=== PATIENT | female | born 1955 | race Caucasian/White ===

== ENCOUNTER 2018-09-20 11:38 | Outpatient (CLI) | payer OTHER ==
[2018-09-20] MEDS ORDERED: IOVERSOL 320 50 ML VIAL ONE (11:56)
[2018-09-20] MEDS ORDERED: IOPAMIDOL-300 100 ML VIAL ONE (11:56)
[2018-09-20 13:02] LABS: CREATININE 0.6 mg/dL (0.4-1.0)
[2018-09-20] MEDS ORDERED: IOPAMIDOL-300 100 ML VIAL IVP ONE (13:27)
[2018-09-20] MEDS ORDERED: IOVERSOL 320 50 ML VIAL PO ONE (13:27)
--- NOTE | 2018-09-20 13:54 | CT Report ---
Reason: STOMACH PAIN Procedure Date: 09/20/2018 Accession Number: [id number] / [id number] Procedure: CT - Abdomen/Pelvis W CPT Code: FULL RESULT: EXAM: CT ABDOMEN AND PELVIS EXAM DATE: 09/20/2018 01:18 PM. CLINICAL HISTORY: STOMACH PAIN. COMPARISONS: CT 09/19/2010. TECHNIQUE: Routine helical CT imaging was performed through the abdomen and pelvis. IV contrast: ISOVUE 300 100mL. Enteric contrast: Yes. Reconstructions: Coronal and sagittal. In accordance with CT protocol optimization, one or more of the following dose reduction techniques were utilized for this exam: automated exposure control, adjustment of mA and/or KV based on patient size, or use of iterative reconstructive technique. FINDINGS: Lung Bases: Unremarkable. Liver: Normal. No masses. Gallbladder/Bile Ducts: Unremarkable. Spleen: Normal. Pancreas: Normal. Adrenal Glands: Normal. Kidneys: Normal. No masses or hydronephrosis. Peritoneal Cavity/Bowel: There is oral contrast seen throughout the small bowel and to the sigmoid colon. No transition zone or bowel obstruction. There are a moderate number of diverticula within the colon. There is a focal area of fat stranding and inflammation in the left lower quadrant around the sigmoid colon image 58-62. No extraintestinal gas. No bowel obstruction or abscess. The appendix is well visualized and normal. Pelvic Organs: Urinary bladder is unremarkable. Uterus and ovaries appear normal in size. Vasculature: No aneurysms or other significant abnormality. Bones: There is mild to moderate disk height loss at L4-L5. No fracture. Other: None. IMPRESSION: Acute diverticulitis in the left lower quadrant of the sigmoid colon. No perforation, abscess or obstruction. RADIA The call report notification system was initiated by Dr. Tacho Brunson at 01:52 PM on 09/20/2018.
== END 2018-09-20 11:39 | disposition home or self-care (01) ==
LOC: DI 11:38
PROVIDERS: ATTEND Physician Assistant Medical
DX: K57.32 Diverticulitis of large intestine without perforation or abscess without bleeding (principal)
CPT/HCPCS: 36415; 74177; 82565; Q9967

== ENCOUNTER 2019-04-04 10:24 | Outpatient (CLI) | payer MEDICARE, OTHER ==
--- NOTE | 2019-04-05 08:24 | Mammography Report ---
Reason: SCREENING MAMMO Procedure Date: 04/04/2019 Accession Number: [id number] / [id number] Procedure: NEL - Screening Mammo Impl w/Ever CPT Code: FULL RESULT: EXAM: Screening Mammo Impl w/Ever DATE: 04/04/2019 11:04 AM CLINICAL HISTORY: Screening encounter. History of nulliparity. History of bilateral saline breast implants. TECHNIQUE: (B) - Bilateral CC and MLO views were obtained. Images were obtained in implant displaced and standard fashion. COMPARISON: 04/09/2016 through 03/12/2010. PARENCHYMAL PATTERN: (A) - The breast(s) demonstrate(s) scattered fibroglandular densities. FINDINGS: Intact-appearing prepectoral saline implants are again demonstrated. There are no suspicious masses, calcifications, or areas of distortion. IMPRESSION: Benign findings. BI-RADS category 2. RECOMMENDATION: (ANNUAL) - Recommend routine annual screening mammography. BI-RADS CATEGORY: (2) - Benign Findings. STANDARD QUALIFYING STATEMENTS: 1. This examination was not reviewed with the aid of Computer-Aided Detection (CAD). 2. A negative or benign imaging report should not preclude biopsy if clinically suspicious findings are present. 3. Dense breasts may obscure an underlying neoplasm. 4. This examination was reviewed with the aid of 3D breast imaging (tomosynthesis).
== END 2019-04-04 10:25 | disposition home or self-care (01) ==
LOC: DI 10:24
DX: Z12.31 Encounter for screening mammogram for malignant neoplasm of breast (principal); Z98.82 Breast implant status
CPT/HCPCS: 77063; 77067

== ENCOUNTER 2020-08-01 06:57 | Day surgery (SDC) | payer MEDICARE, OTHER ==
[2020-08-01] MEDS ORDERED: LACTATED RINGERS 1,000 ML IV ONE ×2 (07:00→09:52)
[2020-08-01] MEDS ORDERED: MIDAZOLAM 2 MG/2 ML VIAL ONE ×3 (09:18→09:37)
[2020-08-01] MEDS ORDERED: fentaNYL 250 MCG/5 ML VIAL ONE (09:18)
[2020-08-01 09:54] VITALS: BP 114/58
== END 2020-08-01 06:58 | disposition home or self-care (01) ==
LOC: SDS 06:57
PROVIDERS: ATTEND Surgery
PROC: 0DBL8ZZ Excision of Transverse Colon, Via Natural or Artificial Opening Endoscopic (ICD-10-PCS; principal; 2020-08-01 08:15)
DX: Z12.11 Encounter for screening for malignant neoplasm of colon (principal); D12.3 Benign neoplasm of transverse colon; K57.30 Diverticulosis of large intestine without perforation or abscess without bleeding; Z80.0 Family history of malignant neoplasm of digestive organs; E78.5 Hyperlipidemia, unspecified
CPT/HCPCS: 45380; J3010; J7120

== ENCOUNTER 2020-09-13 09:38 | Outpatient (CLI) | payer MEDICARE, OTHER ==
--- NOTE | 2020-09-13 11:07 | DEXA Report ---
PROCEDURE: Dexa Spine and/or Hip INDICATIONS: POST MENAPAUSAL TECHNIQUE: Dual energy x-ray absorptiometry (DXA) was performed on a OrthoScan System. Regions measur ed are the AP Spine, femoral neck, and if needed forearm. COMPARISON: None. FINDINGS: Lumbar Spine: Bone Mineral Density 0.935 g/cm/cm,T score -2.0, Left Femoral Neck: Bone Mineral Density 1.003 g/cm/cm, T score 0.0, (T score greater or equal to -1.0: NORMAL) (T score from -1.1 to -2.4: OSTEOPENIA) (T score less than or equal to -2.5 to: OSTEOPOROSIS) Impression: Osteopenia. Patients with diagnosis of osteoporosis or osteopenia should have regular bone mineral density assess ment. For those eligible for Medicare, routine testing is allowed once every 2 years. Testing frequ ency can be increased for patients who have rapidly progressing disease or for those who are receivin g medical therapy to restore bone mass. Reviewed by: Dion Clayton MD on 09/13/2020 11:06 AM PST Approved by: Dion Clayton MD on 09/13/2020 11:06 AM PST Station ID: [id number]
== END 2020-09-13 09:39 | disposition home or self-care (01) ==
LOC: DI 09:38
PROVIDERS: ATTEND Obstetrics & Gynecology
DX: M85.89 Other specified disorders of bone density and structure, multiple sites (principal); Z78.0 Asymptomatic menopausal state

== ENCOUNTER 2020-09-13 09:39 | Outpatient (CLI) | payer MEDICARE, OTHER ==
--- NOTE | 2020-09-16 14:10 | Mammography Report ---
BILATERAL DIGITAL SCREENING MAMMOGRAM WITH AUGMENTATION: 09/13/2020 CLINICAL: Routine screening. Comparison is made to exams dated: 04/04/2019 mammogram, 04/09/2016 mammogram, and 09/01/2014 mammogram - [facility]. The tissue of both breasts is heterogeneously dense. This may lower the sensitivity of mammography. Bilateral breast implants are stable. No significant masses, calcifications, or other findings are seen in either breast. There has been no significant interval change. IMPRESSION: NEGATIVE There is no mammographic evidence of malignancy. A 1 year screening mammogram is recommended. This exam was interpreted at Station ID: [id number]. NOTE: For mammograms, a report in lay terms will be sent to the patient. Approximately 15% of breast malignancies will not be visualized mammographically. In the management of a palpable breast mass, a negative mammogram must not discourage biopsy of a clinically suspicious lesion. Electronically Signed By: Rodrick Gallardo M.D. ar/penrad:09/13/2020 12:47:17 ACR BI-RADS Category 1: Negative 3341F PARENCHYMAL PATTERN: (D) - The breast(s) demonstrate(s) heterogeneously dense fibroglandular diana hoover. BI-RADS CATEGORY: (1) - 1 RECOMMENDATION: (ANNUAL) - Recommend routine annual screening mammography. [id number] 1 year screening LATERALITY: (B)
== END 2020-09-13 09:40 | disposition home or self-care (01) ==
LOC: DI 09:39
PROVIDERS: ATTEND Obstetrics & Gynecology
DX: Z12.31 Encounter for screening mammogram for malignant neoplasm of breast (principal); Z98.82 Breast implant status

== ENCOUNTER 2020-11-05 10:11 | Emergency (ER) | payer MEDICARE, OTHER ==
--- NOTE | 2020-11-05 10:48 | ED Physician Documentation ---
PD HPI ABD PAIN - Stated complaint Stated Complaint: ABD PX - Chief complaint Chief Complaint: Abd Pain - History obtained from History obtained from: Patient - History of Present Illness Timing - onset: How many days ago (4) Timing - duration: Days (4) Timing - details: Gradual onset, Still present, Waxing and waning Quality: Cramping, Aching, Pain Location: LLQ (wityh some extension to RLQ.) Improved by: Laying still. No: Eating Worsened by: Moving, Position. No: Eating, Breathing Associated symptoms: Nausea. No: Fever, Diarrhea, Constipation, Hematochezia Similar symptoms before: Diagnosis (feeling similar to prior diverticulitis episodes.) Recently seen: Clinic (seen at walk in and referred to ER for further eval/ likely CT.) Review of Systems Constitutional: reports: Myalgias. denies: Fever, Chills Nose: denies: Rhinorrhea / runny nose, Congestion Throat: denies: Sore throat Respiratory: denies: Cough GI: reports: Abdominal Pain, Nausea. 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 HEENT: Tonsil/Adenoidectomy - Present Medications Home Medications: Ambulatory Orders Medication Instructions Recorded Confirmed Calcium Carbonate [Calcium] 600 mg PO DAILY 07/19/13 11/05/20 Cetirizine [ZyrTEC] 10 mg PO DAILY PRN 07/19/13 11/05/20 Cholecalciferol (Vitamin D3) 1,000 unit PO DAILY 07/19/13 11/05/20 [Vitamin D] Pramipexole [Mirapex] 0.125 mg PO DAILY 07/31/20 11/05/20 Zolpidem [Ambien] 5 mg PO HS 07/31/20 11/05/20 Naproxen [EC-Naproxen] 500 mg PO BID #14 11/05/20 Sulfamethox/Trimeth 800/160 1 each PO BID #12 tablet 11/05/20 [Bactrim Ds 800/160] metroNIDAZOLE [Flagyl] 500 mg PO BID #12 tablet 11/05/20 - Allergies Allergies/Adverse Reactions: Allergies Allergy/AdvReac Type Severity Reaction Status Date / Time Penicillins Allergy Hives Verified 06/21/13 16:48 - Social History Does the pt smoke?: No Smoking Status: Never smoker Does the pt drink ETOH?: Yes ETOH Use: Wine Does the pt have substance abuse?: No - Immunizations Immunizations are current?: Yes - POLST Patient has POLST: No PD ED PE NORMAL - Vitals Vital signs reviewed: Yes - General General: Alert and oriented X 3, No acute distress, Well developed/nourished - HEENT HEENT: Moist mucous membranes, Pharynx benign - Neck Neck: Supple, no meningeal sign, No adenopathy - Cardiac Cardiac: RRR, No murmur - Respiratory Respiratory: Clear bilaterally - Abdomen Abdomen: Normal bowel sounds, Soft, Non distended, No organomegaly, Other (tender LLQ without percussion nor rebound tenderness. Mild local guarding. ) - Female Female : Deferred - Rectal Rectal: Deferred - Back Back: No CVA TTP - Derm Derm: Normal color, Warm and dry - Extremities Extremities: No tenderness to palpate, Normal ROM s pain, No edema, No calf tenderness / cord - Neuro Neuro: Alert and oriented X 3, No motor deficit, Normal speech Eye Opening: Spontaneous Motor: Obeys Commands Verbal: Oriented GCS Score: 15 Results - Vitals Vitals: Vital Signs - 24 hr 11/05/20 11/05/20 11/05/20 10:23 10:26 11:44 Temperature 37.1 C Heart Rate 96 90 97 Respiratory 18 18 16 Rate Blood Pressure 152/80 H 158/77 H 131/59 H O2 Saturation 100 99 99 Oxygen O2 Source Room air - Labs Labs: Laboratory Tests 11/05/20 11/05/20 11/05/20 10:41 10:41 10:56 WBC 7.1 RBC 4.34 Hgb 13.7 Hct 41.6 MCV 95.9 MCH 31.6 H MCHC 32.9 RDW 12.4 Plt Count 282 MPV 9.7 Neut # (Auto) 4.3 Lymph # (Auto) 2.0 Maverick # (Auto) 0.6 Eos # (Auto) 0.1 Baso # (Auto) 0.0 Absolute Nucleated RBC 0.00 Nucleated RBC % 0.0 Sodium 138 Potassium 4.5 Chloride 102 Carbon Dioxide 26 Anion Gap 10.0 BUN 18 Creatinine 0.7 Estimated GFR (MDRD) 84 L Glucose 114 H Calcium 10.3 Magnesium 2.2 Total Bilirubin 0.4 AST 19 ALT 19 Alkaline Phosphatase 58 Total Protein 7.5 Albumin 4.3 Globulin 3.2 Albumin/Globulin Ratio 1.3 Lipase 25 Urine Color Urine Clarity Urine pH Ur Specific [place] Urine Protein Urine Glucose (UA) Urine Ketones Urine Occult Blood Urine Nitrite Urine Bilirubin Urine Urobilinogen Ur Leukocyte Esterase Ur Microscopic Review Urine Culture Comments 11/05/20 11:10 WBC RBC Hgb Hct MCV MCH MCHC RDW Plt Count MPV Neut # (Auto) Lymph # (Auto) [place] # (Auto) Eos # (Auto) Baso # (Auto) Absolute Nucleated RBC Nucleated RBC % Sodium Potassium Chloride Carbon Dioxide Anion Gap BUN Creatinine Estimated GFR (MDRD) Glucose Calcium Magnesium Total Bilirubin AST ALT Alkaline Phosphatase Total Protein Albumin Globulin Albumin/Globulin Ratio Lipase Urine Color YELLOW Urine Clarity CLEAR Urine pH 6.5 Ur Specific [place] 1.015 Urine Protein NEGATIVE Urine Glucose (UA) NEGATIVE Urine Ketones NEGATIVE Urine Occult Blood NEGATIVE Urine Nitrite NEGATIVE Urine Bilirubin NEGATIVE Urine Urobilinogen 0.2 (NORMAL) Ur Leukocyte Esterase NEGATIVE Ur Microscopic Review NOT INDICATED Urine Culture Comments NOT INDICATED - Rads (name of study) abd/pelvic CT Radiology: Prelim report reviewed (thickening of colon wall sigmoid area near diverticulum, c/w early diverticulitis.), See rad report PD MEDICAL DECISION MAKING - ED course Complexity details: reviewed results, re-evaluated patient, considered differential (exam and symptoms seem most likely c/w early/mild diverticulitis. Can get labs/imaging to ensure not complicated. ), d/w patient Departure - Departure Disposition: 01 Home, Self Care Clinical Impression: Lower abdominal pain, Diverticulitis Condition: Stable Record reviewed to determine appropriate education?: Yes Instructions: ED Diverticulitis Follow-Up: James Camp MD [Primary Care Provider] - Prescriptions: Sulfamethox/Trimeth 800/160 [Bactrim Ds 800/160] 1 each PO BID #12 tablet Naproxen [EC-Naproxen] 500 mg PO BID #14 metroNIDAZOLE [Flagyl] 500 mg PO BID #12 tablet Comments: Stay well-hydrated. Add some probiotics supplements over the next week or 2 to minimize side effects from the antibiotics. Use an anti-inflammatory such as naproxen 500 mg twice daily with food. Antibiotics of Bactrim and Flagyl twice daily as directed for the diverticulitis. Recheck if not improved well over the next several days and resolved within 5 to 7 days. Tylenol added if needed for pains. Discharge Date/Time: 11/05/20 13:00
[2020-11-05 10:52] LABS: BASOPHILS % (AUTO) 0.6 %; EOSINOPHILS # (AUTO) 0.1 10^3/uL (0.0-0.7); EOSINOPHILS % (AUTO) 1.3 %; HCT - HEMATOCRIT 41.6 % (37.0-47.0); HGB - HEMOGLOBIN 13.7 g/dL (12.0-16.0); LYMPHOCYTES % (AUTO) 27.9 %; MEAN CORPUSCULAR HEMOGLOBIN 31.6 pg (27.0-31.0); MEAN CORPUSCULAR HGB CONC 32.9 g/dL (32.0-36.0); MEAN CORPUSCULAR VOLUME 95.9 fL (81.0-99.0); MEAN PLATELET VOLUME 9.7 fL (7.9-10.8); MONOCYTES # (AUTO) 0.6 10^3/uL (0.0-1.0); MONOCYTES % (AUTO) 8.9 %; NEUTROPHILS # (AUTO) 4.3 10^3/uL (1.5-6.6); PLT - PLATELET COUNT 282 10^3/uL (130-450); RED BLOOD COUNT 4.34 10^6/uL (4.20-5.40); RED CELL DISTRIBUTION WIDTH 12.4 % (12.0-15.0); WHITE BLOOD COUNT 7.1 x10^3/uL (4.8-10.8)
[2020-11-05 10:57] LABS: ALBUMIN 4.3 g/dL (3.2-5.5); ALBUMIN/GLOBULIN RATIO 1.3 (1.0-2.2); BILIRUBIN,TOTAL 0.4 mg/dL (0.2-1.0); CALCIUM 10.3 mg/dL (8.5-10.3); CREATININE 0.7 mg/dL (0.4-1.0); POTASSIUM 4.5 mmol/L (3.5-5.0); TOTAL PROTEIN 7.5 g/dL (6.7-8.2)
[2020-11-05] MEDS ORDERED: KETOROLAC 30 MG/ML VIAL IVP STA (11:01)
[2020-11-05] MEDS ORDERED: SODIUM CHLORIDE 0.9% 1,000 ML IV STA (11:01)
[2020-11-05] MEDS ORDERED: IOPAMIDOL-300 100 ML VIAL ONE (11:06)
[2020-11-05 11:23] LABS: BILIRUBIN,URINE NEGATIVE (NEGATIVE); GLUCOSE, URINE (UA) NEGATIVE (NEGATIVE); KETONES,URINE (UA) NEGATIVE (NEGATIVE); LEUKOCYTE ESTERASE, URINE NEGATIVE (NEGATIVE); NITRITE,URINE NEGATIVE (NEGATIVE); OCCULT BLOOD,URINE NEGATIVE (NEGATIVE); PH,URINE 6.5 PH (5.0-7.5); PROTEIN,URINE NEGATIVE (NEGATIVE); UROBILINOGEN,URINE 0.2 (NORMAL) E.U./dL (NORMAL)
[2020-11-05 11:29] LABS: CLARITY,URINE CLEAR (CLEAR)
[2020-11-05] MEDS ORDERED: IOPAMIDOL-300 100 ML VIAL IVP ONE (11:29)
--- OUTSIDE RECORDS SUMMARY | 2020-11-05 11:41 | EXTERNAL MEDICAL SUMMARY RPT | Continuity of Care Document ---
:1955 Demographics Phone Unavailable Preferred Language Unknown Marital Status Unknown Holiness Affiliation Unknown Race Unknown Ethnic Group Unknown Author Organization [facility] Address [address] [id number] Phone Social History date description facility [id number]
[2020-11-05 11:46] VITALS: BP 131/59
--- NOTE | 2020-11-05 11:54 | CT Report ---
PROCEDURE: Abdomen/Pelvis W INDICATIONS: LLQ/lower abd pain for several days CONTRAST: IV CONTRAST: Isovue 300 ml: 100 PO CONTRAST: *NO PO CONTRAST TECHNIQUE: After the administration of IV contrast, 5 mm thick sections acquired from the diaphragms to the symp hysis. 5 mm thick coronal and sagittal reformats were acquired. For radiation dose reduction, the f ollowing was used: automated exposure control, adjustment of mA and/or kV according to patient size. COMPARISON: CT abdomen pelvis 09/20/2018 FINDINGS: Image quality: Excellent. ABDOMEN: Lung bases: Lung bases are clear. Heart size is normal. Solid organs: Liver is enlarged with steatosis. The spleen is normal in size and enhancement. Gallb ladder is unremarkable Biliary system is non dilated. Pancreas enhances normally. No adrenal nodul es. Kidneys demonstrate normal size and enhancement, without hydronephrosis. Peritoneum and bowel: Bowel loops are nonobstructive. There is a mildly thickened appearance of the sigmoid colon with pericolonic stranding. Colonic diverticula are present. No abscess. No free fluid or air. Nodes and vessels: No retroperitoneal or mesenteric adenopathy by size criteria. Aorta and inferior vena cava are normal in size. Miscellaneous: No ventral hernias. Bilateral breast implants are noted. PELVIS: Genitourinary: Bladder wall thickness is normal. Miscellaneous: No inguinal hernias or adenopathy. Bones: No suspicious bony lesions. No vertebral body compression fractures. IMPRESSION: 1. Sigmoid thickening with diverticula most consistent with colitis secondary to diverticulitis. No f ree fluid or free air. No associated abscess. 2. Mild hepatomegaly with steatosis. Reviewed by: Annabel Romo MD on 11/05/2020 10:53 AM TERRI Approved by: Annabel Romo MD on 11/05/2020 10:53 AM AKRUBY Station ID: [id number]
[2020-11-05] MEDS ORDERED: SULFAMETH/TRIMETH DS 800/160 MG TABLET PO STA (12:37)
[2020-11-05] MEDS ORDERED: metroNIDAZOLE 250 MG TABLET PO STA (12:37)
== END 2020-11-05 13:00 | disposition home or self-care (01) ==
LOC: ED 10:11
DX: K57.32 Diverticulitis of large intestine without perforation or abscess without bleeding (principal)
CPT/HCPCS: 36415; 74177; 80053; 81003; 83690; 83735; 85025; 99284; A9270; Q9967; 81001; 87086